=== PATIENT | male | born 1955 | race Caucasian/White ===

== ENCOUNTER 2019-01-08 07:57 | Day surgery (SDC) | payer BC ==
[~2019-01-08 07:57] MED LIST: Bupivacaine 0.5% 30 ML SDV ONE; Lidocaine 1% 30 ML SDV ONE
[2019-01-08] MEDS ORDERED: Lidocaine 1% 30 ML SDV INJECT ONE ×4 (07:58→11:06)
[2019-01-08] MEDS ORDERED: Midazolam 1 MG/ML 2 ML SDV IV ONE (07:58)
[2019-01-08] MEDS ORDERED: Ketorolac 30 MG/ML SDV IVPUSH ONE (07:58)
[2019-01-08] MEDS ORDERED: Ondansetron 4 MG/2 ML SDV IV ONE (07:58)
[2019-01-08] MEDS ORDERED: Bupivacaine 0.5% 30 ML SDV INJECT ONE ×4 (07:58→11:06)
[2019-01-08] MEDS ORDERED: Propofol 200 MG/20 ML SDV IV ONE (07:58)
[2019-01-08] MEDS ORDERED: fentaNYL 100 MCG/2 ML SDV IV ONE (07:58)
[2019-01-08] MEDS ORDERED: ceFAZolin 2 GM in Premix Bag 1 BAG IV ONE (08:00)
[2019-01-08] MEDS ORDERED: Sodium Chloride 0.9% 10 ML Syringe FLUSH PRN ×2 (08:00)
[2019-01-08] MEDS ORDERED: Lactated Ringers 1,000 ML IV SCH (08:00)
[2019-01-08] MEDS ORDERED: Acetaminophen/oxyCODONE 325-5 MG Tab PO PRN (11:14)
--- NOTE | 2019-01-08 11:16 | PCM.OPNOTE ---
- General Post-Op/Procedure Note Date of Surgery/Procedure: 01/08/19 Operative Procedure(s): left foot soft tissue mass excision Pre Op Diagnosis: left foot soft tissue mass Post-Op Diagnosis: jay Anesthesia Technique: Local, MAC Primary Surgeon: Lina Barajas Anesthesia Provider: Francisco J Perea Pathology: left foot mass EBL in mLs: 5 Complications: none Condition: Good Free Text/Narrative:: Intake & Output 01/07/19 01/08/19 01/08/19 22:59 06:59 14:59 Intake Total 50 Balance 50 Pt tolerated procedure well and was transported to recovery with vascular status intact to left foot. Well padded compression dressing applied.
--- NOTE | 2019-01-09 13:35 | OR ---
DATE: 01/08/2019 PREOPERATIVE DIAGNOSIS: Left foot plantar fibroma. POSTOPERATIVE DIAGNOSIS: Left foot plantar fibroma. PROCEDURE PERFORMED: Left foot soft tissue mass excision. ANESTHESIA: Local MAC with preoperative local block of 10 mL 1:1 mixture of 1% lidocaine plain and 0.5% Marcaine plain. TOURNIQUET TIME: 56 minutes pneumatic ankle tourniquet. ESTIMATED BLOOD LOSS: Minimal. SPECIMEN REMOVED: Left foot mass. COMPLICATIONS: None. INDICATIONS: Michael is a 63-year-old male who presents for a painful lump on the bottom of his left foot. He does report history of trigger finger in which he had surgery to take care of those, was told that these lumps were associated with that. He states that it causes tightness through his foot and all the way up into his leg. The patient voiced good understanding of proposed procedure and possible complications and elects to have surgery at this time. DESCRIPTION OF PROCEDURE: The patient was taken to the operating room lying in supine position. After adequate anesthesia induction as described above, the left foot was prepped and draped in the usual sterile fashion. A pneumatic ankle tourniquet was inflated to 225 mmHg. Attention was then directed to the left medial arch area where the soft tissue masses were marked out; there were 3 individual masses noted at the medial midfoot area. A linear incision was made just medial to the masses so that the incision is not at the plantar aspect of the foot. The incision was approximately 6 cm in length. Sharp and blunt dissection were performed down to the level of the soft tissue mass, which was noted to be adhered down to the muscle belly underneath and also to the skin. The mass was carefully released from the muscle belly as well as the skin. It did get pretty thin in a couple of different spots when removing from the skin. There were also 2 nerves that were running just plantar to the mass that I was careful to dissect around and retract. I completely removed the soft tissue masses, the first 2 were together and measured 3.5 x 1.5 cm and the last one was more distal and measured 1.0 x 1.0. I also made sure to take approximately 1 cm margin around all of the masses to hopefully prevent them from recurring. I inspected the area and all masses had been excised and no remaining soft tissue masses were palpated. The area was then irrigated with copious amounts of sterile saline. Deep closure was completed with 3-0 Vicryl and skin closure was completed with 4-0 nylon. The area was dressed with Xeroform to the incision site, gauze, fluffs, and Webril. He was placed in Esdras wrap with a postoperative CAM boot. He was instructed on no weightbearing. The patient tolerated the procedure well and was transported to Recovery with vital signs stable and vascular status intact to the left foot as noted by immediate hyperemia upon deflation of the ankle tourniquet. The patient was then discharged home once he met hospital discharge requirements. [facility] /[id number]
== END 2019-01-08 13:04 | disposition home or self-care (01) ==
LOC: DL.SDS 07:57
PROVIDERS: ATTEND Podiatrist
DX: D21.22 Benign neoplasm of connective and other soft tissue of left lower limb, including hip (principal); I10 Essential (primary) hypertension; G47.33 Obstructive sleep apnea (adult) (pediatric); Z99.89 Dependence on other enabling machines and devices; Z79.899 Other long term (current) drug therapy
CPT/HCPCS: 28090; 93005; J0690; J1885; J2001; J2250; J2405; J2704; J3010; J3490; J7120

== ENCOUNTER 2020-01-22 05:21 | Day surgery (SDC) | payer BC ==
[2020-01-22] MEDS ORDERED: fentaNYL 100 MCG/2 ML SDV IV ONE ×3 (05:22→06:25)
[2020-01-22] MEDS ORDERED: Midazolam 1 MG/ML 2 ML SDV IV ONE ×3 (05:22→06:26)
[2020-01-22] MEDS ORDERED: Dextrose 5%-0.45% NaCl 1,000 ML IV SCH (05:30)
[2020-01-22] MEDS ORDERED: Sodium Chloride 0.9% 10 ML Syringe FLUSH PRN (05:30)
[2020-01-22] MEDS ORDERED: fentaNYL 100 MCG/2 ML SDV ONE (06:16)
[2020-01-22] MEDS ORDERED: Midazolam 1 MG/ML 2 ML SDV ONE (06:16)
--- NOTE | 2020-01-22 07:16 | OR ---
DATE: 01/22/2020 PROCEDURE: Esophagogastroduodenoscopy and multiple pinch biopsies. INSTRUMENT USED: GIF-HQ190 Olympus video panendoscope. PREMEDICATIONS: No oral or topical anesthesia used. Fentanyl 100 mcg intravenous, Versed 2 mg intravenous. Nasal O2 cannula. The procedure was done under pulse oximetry, BP recording, and radiation monitor. INDICATION: The patient with unexplained iron-deficiency anemia. Esophagogastroduodenoscopy is performed for detection of any active erosive lesions, Saenz esophagus and/or malignancy also under consideration, H. pylori status to be determined, small bowel biopsies to be obtained for celiac disease if indicated, endoscopic hemostasis therapy if needed. DESCRIPTION OF PROCEDURE: The scope was passed with ease. Adequate visualization of the esophagus was made from proximal to distal areas. No upper esophageal lesions identified. No distal esophageal stricture. No uphill or downhill esophageal varices. No Shiloh-Rice tear. No evidence of erosive esophagitis by [place] criteria. No esophageal polyp or tumor mass identified. Z-line was seen at around 40 cm distal to the oral verge, configuration consistent with grade 1 by ZAP classification. No proximal gastric varices noted. Gastric fundus examination by retroflexion showed no polypoid lesions. No gastric ulcer, malignant mass, or vascular ectasia identified. Duodenal bulb showed no ulcer. Visualized 2nd part of the duodenum was unremarkable. Multiple pinch biopsies, 4 in number were taken from different areas of the 2nd part of the duodenum and tissues were also obtained from duodenal bulb at 9 and 12 o'clock positions and sent for any histopathologic evidence of celiac disease. Multiple pinch biopsies were also taken from the gastric antrum and proximal body and sent for PyloriTek test for H. pylori and histopathology. No bleeding was noted from any of the visualized areas at the completion of the examination. Photographs were taken of the duodenal bulb, gastric antrum, fundus, and distal esophagus. IMPRESSION: Normal study. The patient tolerated the procedure well. [facility] /[id number]
== END 2020-01-22 08:31 | disposition home or self-care (01) ==
LOC: DL.ENDO 05:21
PROVIDERS: ATTEND Internal Medicine Gastroenterology
DX: K31.89 Other diseases of stomach and duodenum (principal); I78.1 Nevus, non-neoplastic; D50.9 Iron deficiency anemia, unspecified; I10 Essential (primary) hypertension; E78.5 Hyperlipidemia, unspecified; K21.9 Gastro-esophageal reflux disease without esophagitis; G47.33 Obstructive sleep apnea (adult) (pediatric); Z98.890 Other specified postprocedural states
CPT/HCPCS: 43239; 87077; J2250; J3010; J7042

== ENCOUNTER 2020-01-25 06:24 | Day surgery (SDC) | payer BC ==
[~2020-01-25 06:24] MED LIST changes: -Bupivacaine 0.5% 30 ML SDV ONE; -Lidocaine 1% 30 ML SDV ONE; +Midazolam 1 MG/ML 2 ML SDV ONE; +fentaNYL 100 MCG/2 ML SDV ONE
[2020-01-25] MEDS ORDERED: Midazolam 1 MG/ML 2 ML SDV IV ONE ×7 (06:25→07:45)
[2020-01-25] MEDS ORDERED: fentaNYL 100 MCG/2 ML SDV IV ONE ×5 (06:25→07:52)
[2020-01-25] MEDS ORDERED: Dextrose 5%-0.45% NaCl 1,000 ML IV SCH (06:45)
--- NOTE | 2020-01-25 12:38 | OR ---
DATE: 01/25/2020 PROCEDURE: Total colonoscopy. INSTRUMENT USED: [id number]-H190DL Olympus video colonoscope. PREMEDICATIONS: Fentanyl 150 mcg intravenous, Versed 4 mg intravenous, nasal O2 cannula. The procedure was done under pulse oximetry, BP recording, and athletic monitor. INDICATION: The patient with recently detected iron-deficiency anemia and high- risk family history for colon cancer. Colonoscopic examination is done for detection of any polypoid lesions and removal, endoscopic hemostasis therapy if needed. DESCRIPTION OF PROCEDURE: Initial rectal exam showed BPH. Rigid anoscopy showed small internal hemorrhoids without bleeding from them. The colonoscope was passed with ease. Few scattered diverticula were noted in the distal colon along with deformity. The scope was passed with ease up to the ileocecal area. Photographs were taken of the normal-appearing cecum, identified by landmarks of appendiceal orifice and double-bulged ileocecal folds. No bleeding was noted from any of the visualized areas at the commencement of the examination. The bowel preparation was found to be adequate, [place] scale 2 in all the regions, total score 6. No stricture. No vascular ectasia. No large isolated ulcerations seen. No evidence of diffuse inflammatory bowel disease in the form of friability, contact bleeding, or ulcerations. No polyp or tumor mass identified. Probing the proximal sides of folds and flexures using adequate distention and clearing up the stool material, withdrawal of the scope was made, cecum to rectum time over 6 minutes. No bleeding was noted from any of the visualized areas at the completion of examination. IMPRESSION: 1. Internal hemorrhoids. 2. Diverticulosis. The patient tolerated the procedure well. [facility] /[id number]
== END 2020-01-25 10:00 | disposition home or self-care (01) ==
LOC: DL.ENDO 06:24
PROVIDERS: ATTEND Internal Medicine Gastroenterology
DX: Z12.11 Encounter for screening for malignant neoplasm of colon (principal); K57.30 Diverticulosis of large intestine without perforation or abscess without bleeding; K64.8 Other hemorrhoids; N40.0 Benign prostatic hyperplasia without lower urinary tract symptoms; I10 Essential (primary) hypertension; E78.5 Hyperlipidemia, unspecified; K21.9 Gastro-esophageal reflux disease without esophagitis; D50.9 Iron deficiency anemia, unspecified; G47.33 Obstructive sleep apnea (adult) (pediatric); Z80.0 Family history of malignant neoplasm of digestive organs; Z86.010 Personal history of colon polyps; Z79.899 Other long term (current) drug therapy
CPT/HCPCS: 45378; J2250; J3010; J7042